=== PATIENT | female | born 2005 | race Two or more races ===

== ENCOUNTER 2023-05-03 14:05 | Emergency (ER) | payer MEDICAID, OTHER | END 2023-05-03 15:37 | disposition left against medical advice (07) | LOC: ER 14:05 | DX: J00 Acute nasopharyngitis [common cold] (principal); Z53.21 Procedure and treatment not carried out due to patient leaving prior to being seen by health care provider ==

== ENCOUNTER 2023-05-03 18:18 | Emergency (ER) | payer MEDICAID, OTHER ==
[~2023-05-03] VITALS: Ht 167.6 cm; Wt 71.9 kg
[2023-05-03] MEDS ORDERED: ACETAMINOPHEN 325 MG TAB PO ONE (18:45)
[2023-05-03 20:31] VITALS: BP 94/56; PULSE 95; RESP 16; TEMP 99.6; O2SAT 97
== END 2023-05-03 21:52 | disposition left against medical advice (07) ==
LOC: ER 18:18
DX: U07.1 COVID-19 (principal); Z53.21 Procedure and treatment not carried out due to patient leaving prior to being seen by health care provider